=== PATIENT | male | born 1990 | race Caucasian/White ===

== ENCOUNTER 2018-07-19 19:24 | Emergency (ER) | payer OTHER, BC ==
[2018-07-19 20:22] VITALS: RESP 18
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
[2018-07-20 00:26] VITALS: BP 118/78; PULSE 78; TEMP 98
[2018-07-20 02:03] VITALS: O2SAT 99
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
== END 2018-07-20 00:25 | disposition home or self-care (01) ==
LOC: H.ER 19:24
DX: S00.83XA Contusion of other part of head, initial encounter (principal); V43.62XA Car passenger injured in collision with other type car in traffic accident, initial encounter; Y92.410 Unspecified street and highway as the place of occurrence of the external cause